=== PATIENT | female | born 2000 | race Caucasian/White ===

== ENCOUNTER → 2022-12-04 | Outpatient (REF) | payer OTHER | LOC: M PLALAB 09:10 | PROVIDERS: ATTEND Advanced Practice Midwife | DX: Z12.4 Encounter for screening for malignant neoplasm of cervix (principal) ==

== ENCOUNTER → 2022-12-04 | Outpatient (CLI) | payer BC, OTHER | LOC: M PLALAB 09:37 | PROVIDERS: ATTEND Advanced Practice Midwife | DX: Z84.81 Family history of carrier of genetic disease (principal) ==

== ENCOUNTER → 2023-11-22 | Outpatient (CLI) | payer BC ==
[2023-11-22 18:03] LABS: HEMATOCRIT 36.8 % (36.0-47.0); HEMOGLOBIN 12.1 g/dl (12.0-15.5); MEAN CORPUSCULAR HEMOGLOBIN 28.5 pg (27.0-33.0); MEAN CORPUSCULAR HGB CONC 32.9 g/dl (32.0-36.5); MEAN CORPUSCULAR VOLUME 86.8 fl (80.0-96.0); PLATELET COUNT, AUTOMATED 395 10^3/uL (150-450); RED BLOOD COUNT 4.24 10^6/uL (4.00-5.40); WHITE BLOOD COUNT 13.1 10^3/uL (4.0-10.0)
[2023-11-22 19:05] LABS: HIV 1&2 SCREEN NEGATIVE (NEGATIVE)
[2023-11-22 19:14] LABS: HEPATITIS C VIRUS ABY INDEX 0.06 INDEX (<0.8)
[2023-11-22 20:55] LABS: GC DNA AMPLIFICATION NEGATIVE (NEGATIVE)
== END ==
LOC: M PLALAB 15:03
PROVIDERS: ATTEND Advanced Practice Midwife
DX: Z34.81 Encounter for supervision of other normal pregnancy, first trimester (principal)

== ENCOUNTER → 2024-01-21 | Outpatient (CLI) | payer BC | LOC: M WHC 12:48 | PROVIDERS: ATTEND Specialist | DX: Z34.82 Encounter for supervision of other normal pregnancy, second trimester (principal); Z3A.20 20 weeks gestation of pregnancy ==

== ENCOUNTER → 2024-02-25 | Outpatient (CLI) | payer BC ==
[2024-02-25 10:19] LABS: HEMATOCRIT 34.8 % (36.0-47.0); MEAN CORPUSCULAR HEMOGLOBIN 28.1 pg (27.0-33.0); MEAN CORPUSCULAR HGB CONC 31.6 g/dl (32.0-36.5); PLATELET COUNT, AUTOMATED 332 10^3/uL (150-450); RED BLOOD COUNT 3.91 10^6/uL (4.00-5.40)
[2024-02-25 10:46] LABS: GLUCOSE CHALLENGE TEST 1 HOUR 127 MG/DL (LESS THAN 140)
[2024-02-25 11:21] LABS: HIV 1&2 SCREEN NEGATIVE (NEGATIVE)
[2024-02-25 11:29] LABS: HEPATITIS C VIRUS ABY INDEX 0.07 INDEX (<0.8)
[2024-02-25 11:41] LABS: GC DNA AMPLIFICATION NEGATIVE (NEGATIVE)
== END ==
LOC: M PLALAB 07:50
PROVIDERS: ATTEND Obstetrics & Gynecology
DX: Z34.82 Encounter for supervision of other normal pregnancy, second trimester (principal)

== ENCOUNTER → 2024-02-25 | Outpatient (CLI) | payer BC | LOC: M WHC 06:44 | PROVIDERS: ATTEND Obstetrics & Gynecology | DX: Z36.2 Encounter for other antenatal screening follow-up (principal); Z3A.25 25 weeks gestation of pregnancy; O32.2XX0 Maternal care for transverse and oblique lie, not applicable or unspecified ==

== ENCOUNTER → 2024-03-31 | Outpatient (CLI) | payer BC | LOC: M WHC 10:38 | PROVIDERS: ATTEND Advanced Practice Midwife | DX: O32.1XX0 Maternal care for breech presentation, not applicable or unspecified (principal); Z3A.30 30 weeks gestation of pregnancy ==

== ENCOUNTER → 2024-05-11 | Outpatient (REF) | payer BC | LOC: M PLALAB 13:15 | PROVIDERS: ATTEND Nurse Practitioner Family | DX: Z34.93 Encounter for supervision of normal pregnancy, unspecified, third trimester (principal); Z3A.35 35 weeks gestation of pregnancy ==

== ENCOUNTER 2024-05-30 09:42 | Inpatient (IN) | payer BC ==
[~2024-05-30] VITALS: Ht 160 cm; Wt 107.5 kg
[2024-05-30] VITALS (15 sets, daily range): BP systolic 126–179; BP diastolic 65–92; O2SAT 98–99
[2024-05-30] MEDS ORDERED: ACET-897 PO (10:07)
[2024-05-30] MEDS ORDERED: PRENTAB9 PO (10:07)
[2024-05-30] MEDS ORDERED: FAMO20TA PO (10:07)
[2024-05-30] MEDS ORDERED: NOXI1TAB PO (10:07)
[2024-05-30] MEDS ORDERED: ZYRTTAB8 PO (10:07)
[2024-05-30] MEDS ORDERED: TUMS500C PO (10:07)
[2024-05-30] MEDS ORDERED: HOME MED LIST COMPLETE! XX SCH (10:10)
[2024-05-30 12:02] LABS: HEMATOCRIT 41.9 % (36.0-47.0); HEMOGLOBIN 13.6 g/dl (12.0-15.5); MEAN CORPUSCULAR HEMOGLOBIN 27.4 pg (27.0-33.0); MEAN CORPUSCULAR HGB CONC 32.5 g/dl (32.0-36.5); MEAN CORPUSCULAR VOLUME 84.5 fl (80.0-96.0); PLATELET COUNT, AUTOMATED 277 10^3/uL (150-450); RED BLOOD COUNT 4.96 10^6/uL (4.00-5.40); WHITE BLOOD COUNT 12.7 10^3/uL (4.0-10.0)
[2024-05-30 12:14] LABS: ALBUMIN 3.3 G/DL (3.2-5.2); ALKALINE PHOSPHATASE 171 U/L (35-104); ALT/SGPT 18 U/L (7.0-40); AST/SGOT 24 U/L (<34); BILIRUBIN,TOTAL 0.3 MG/DL (0.3-1.2); BLOOD UREA NITROGEN 10 MG/DL (9-23); CALCIUM LEVEL 10.8 MG/DL (8.5-10.1); CARBON DIOXIDE LEVEL 18 MMOL/L (20-31); CHLORIDE LEVEL 109 MMOL/L (98-107); CREATININE FOR GFR 0.63 MG/DL (0.55-1.30); GLOMERULAR FILTRATION RATE > 60.0 (>60); GLUCOSE, FASTING 75 MG/DL (60-100); POTASSIUM SERUM 4.3 MMOL/L (3.5-5.1); SODIUM LEVEL 140 MMOL/L (136-145); TOTAL PROTEIN 7.1 G/DL (5.7-8.2)
[2024-05-30] MEDS: miSOPROStol 25MCG 1/4 TABLET BUC ONE (12:36)
[2024-05-30 12:41] LABS: HEPATITIS C VIRUS ABY INDEX 0.06 INDEX (<0.8)
[2024-05-30] MEDS ORDERED: CARBOPROST TROMETHAMINE 250 MCG/ML AMP IM PRN (12:50)
[2024-05-30] MEDS ORDERED: TRANEXAMIC ACID INJection 1,000 MG in NS 100 ML IV PRN (12:50)
[2024-05-30] MEDS ORDERED: METHYLERGONOVINE MALEATE 0.2MG/ML 1ML VIAL IM PRN (12:50)
[2024-05-30] MEDS ORDERED: OXYTOCIN DRIP 30 UNITS in IV 1 EA IV PRN (12:50)
[2024-05-30] MEDS: miSOPROStol 50MCG 1/2 TABLET BUC ONE (16:38)
[2024-05-30] MEDS: miSOPROStol 50MCG 1/2 TABLET PO ONE (21:13)
[2024-05-31] VITALS (58 sets, daily range): BP systolic 116–174; BP diastolic 57–107
[2024-05-31] MEDS: LR 1,000 ML IV SCH (01:12)
[2024-05-31] MEDS: OXYTOCIN DRIP 30 UNITS in IV 1 EA IV SCH (01:12)
[2024-05-31] MEDS: LACTATED RINGER'S 1000 ML IV PRN (02:00)
[2024-05-31] MEDS ORDERED: EPIDURAL/PCA KEYS XX PRN (02:25)
[2024-05-31] MEDS ORDERED: diphenhydrAMINE 50MG/ML VIAL IV PRN (02:25)
[2024-05-31] MEDS ORDERED: LR 500 ML IV PRN (02:25)
[2024-05-31] MEDS ORDERED: ePHEDrine SULFATE 25 MG/5 ML(5MG/ML) SYRINGE IVP PRN (02:25)
[2024-05-31] MEDS ORDERED: NALOXONE INJ 0.4MG/1ML VIAL IV PRN (02:25)
[2024-05-31] MEDS: FENTANYL/ROPIVACAINE/NACL BAG 100 ML EPIDURAL SCH (03:20)
[2024-05-31 06:41] LABS: TOTAL PROTEIN,RANDOM URINE 37.2 MG/DL (0.0-14.0)
[2024-05-31 06:46] LABS: CREATININE,RANDOM URINE 168.6 MG/DL
[2024-05-31] MEDS: ONDANSETRON 4MG 2ML VIAL IV PRN (07:55)
[2024-05-31] MEDS ORDERED: LIDOCAINE 2% W/EPINEPHRINE 20ML VIAL **PRES FREE As Ordered ONE (23:13)
[2024-05-31] MEDS ORDERED: ONDANSETRON 4MG 2ML VIAL As Ordered ONE (23:16)
[2024-05-31] MEDS: AZITHROMYCIN INJ 500 MG, VIAL MATE ADAPTER 1 EACH in NS 250 ML IV ONE (23:31)
[2024-05-31] MEDS: ceFAZolin SOD 2 GM in IV 1 EA IV ONE (23:31)
[2024-05-31] MEDS: BICITRA 30ML SOLN UDC PO ONE (23:31)
[2024-06-01] VITALS (10 sets, daily range): BP systolic 124–147; BP diastolic 70–90; TEMP 97.9; O2SAT 97–99
[2024-06-01] MEDS ORDERED: OXYTOCIN INJ 10UNITS/ML 1ML VIAL As Ordered ONE (00:02)
[2024-06-01] MEDS ORDERED: MORPHINE PRES-FREE INJ 10 MG/10 ML VIAL As Ordered ONE (00:13)
[2024-06-01] MEDS ORDERED: KETOROLAC 60MG 2ML VIAL As Ordered ONE (00:13)
[2024-06-01 00:23] LABS: CORD GAS ABE V -1.6; CORD GAS HCO3 V 26.3 MMOL/L; CORD GAS O2 SAT V 38.7 %; CORD GAS PCO2 V 56.5 mmHg; CORD GAS PH V 7.285 UNITS; CORD GAS PO2 V 18.6 mmHg; CORD GAS SBC V 21.6 MMOL/L
[2024-06-01 00:24] LABS: CORD GAS HCO3 A 16.7 MMOL/L; CORD GAS O2 SAT A 91.6 %; CORD GAS PCO2 A 32.8 mmHg; CORD GAS PH A 7.326 UNITS; CORD GAS PO2 A 54.3 mmHg; CORD GAS TCO2 A 17.8 MMOL/L
[2024-06-01] MEDS ORDERED: PHENYLephrine 500MCG 5ML (100MCG/ML) SYRINGE As Ordered ONE (00:37)
[2024-06-01] MEDS: LACTATED RINGER'S 1000 ML IV STA (01:09)
[2024-06-01] MEDS ORDERED: **NOTE PATIENT COMMENT** MISC XX SCH (01:40)
[2024-06-01] MEDS: LR 1,000 ML IV SCH (01:40)
[2024-06-01] MEDS ORDERED: NALOXONE INJ 0.4MG/1ML VIAL IV PRN ×2 (01:40)
[2024-06-01] MEDS ORDERED: diphenhydrAMINE 50MG/ML VIAL IV PRN (01:40)
[2024-06-01] MEDS: SLF 3 ML SYR IV SCH (01:40)
[2024-06-01] MEDS ORDERED: oxyCODONE 5MG TAB PO PRN (01:40)
[2024-06-01] MEDS ORDERED: SIMETHICONE 80MG CHEW TAB PO PRN (02:20)
[2024-06-01] MEDS: KETOROLAC 30 MG/ML 1ML VIAL IV SCH (05:53)
[2024-06-01] MEDS: METOCLOPRAMIDE INJ 10MG/2ML VIAL IV PRN (05:54)
[2024-06-01] MEDS: FAMOTIDINE 20 MG TAB PO SCH (10:26)
[2024-06-01] MEDS: DOCUSATE SODIUM 100MG CAPSULE PO PRN (10:26)
[2024-06-01 10:56] LABS: HEMATOCRIT 30.8 % (36.0-47.0); HEMOGLOBIN 10.3 g/dl (12.0-15.5); MEAN CORPUSCULAR HEMOGLOBIN 28.1 pg (27.0-33.0); MEAN CORPUSCULAR HGB CONC 33.4 g/dl (32.0-36.5); MEAN CORPUSCULAR VOLUME 84.2 fl (80.0-96.0); PLATELET COUNT, AUTOMATED 193 10^3/uL (150-450); RED BLOOD COUNT 3.66 10^6/uL (4.00-5.40); WHITE BLOOD COUNT 20.7 10^3/uL (4.0-10.0)
[2024-06-01] MEDS: CETIRIZINE (ZyrTEC) 10 MG TAB PO ONE (13:28)
[2024-06-01] MEDS: PRENATAL VITAMINS CHEWABLE TABLET PO SCH (13:36)
[2024-06-02 02:08] VITALS: BP 127/78; O2SAT 98
[2024-06-02] MEDS: IBUPROFEN 800 MG TAB PO SCH (02:43)
[2024-06-02 06:10] VITALS: BP 118/61; O2SAT 98
[2024-06-02] MEDS ORDERED: OXYC1TAB23 PO (06:58)
[2024-06-02] MEDS ORDERED: COLA100C5 PO (06:58)
[2024-06-02] MEDS ORDERED: IBUP80TA PO (06:58)
[2024-06-02] MEDS: CETIRIZINE (ZyrTEC) 10 MG TAB PO SCH (08:59)
[2024-06-02] MEDS: PERCOCET 5MG/325MG TAB PO PRN (09:55)
[2024-06-02 10:01] VITALS: BP 126/67; O2SAT 97
[2024-06-02 14:52] VITALS: BP 123/64; O2SAT 99
[2024-06-02 18:14] VITALS: BP 122/71; O2SAT 98
[2024-06-02 21:44] VITALS: BP 141/76; O2SAT 99
[2024-06-03] MEDS: PERCOCET 5MG/325MG TAB PO PRN (00:30)
[2024-06-03 02:00] VITALS: BP 130/68; O2SAT 96
[2024-06-03 06:00] VITALS: BP 131/78; O2SAT 99
== END 2024-06-03 13:25 | disposition home or self-care (01) | DRG 540 ==
LOC: M LDO 09:42 → M LDI 12:15 → M OBS 06-01 01:50
PROVIDERS: ADMIT Obstetrics & Gynecology; ATTEND Obstetrics & Gynecology
PROC: 10D00Z1 Extraction of Products of Conception, Low, Open Approach (ICD-10-PCS; principal; 2024-06-01 00:13)
DX: O62.0 Primary inadequate contractions (principal); O42.02 Full-term premature rupture of membranes, onset of labor within 24 hours of rupture; Z37.0 Single live birth; Z3A.38 38 weeks gestation of pregnancy

== ENCOUNTER → 2025-04-18 | Outpatient (CLI) | payer BC ==
[~2025-04-18] MED LIST: ACET-897 PO; COLA100C5 PO; FAMO20TA PO; IBUP80TA PO; NOXI1TAB PO; OXYC1TAB23 PO; PRENTAB9 PO; TUMS500C PO; ZYRTTAB8 PO
== END ==
LOC: M WHC 08:37
PROVIDERS: ATTEND Physician Assistant
DX: Z12.31 Encounter for screening mammogram for malignant neoplasm of breast (principal)